=== PATIENT | female | born 1950 | race African-American/Black ===

== ENCOUNTER 2016-11-05 10:31 | Emergency (ER) | payer OTHER, MEDICAID ==
[2016-11-05 11:21] VITALS: BP 125/67; BMI 25.7
--- NOTE | 2016-11-05 11:32 | DR.GENAD ---
HPI - PCP Primary Care Physician: KISHORE - HPI Comment HPI Comment: DIALYSIS PATIENT DUE DIALYSIS IN AM. NO SOB. NO CALF PAIN. NO CHEST PAIN. - Complaint/Symptoms Chief Complaint Doctors Comments: INCREASE EDEMA LOWER EXTREMITY. MILD PAIN. Chief Complaint:: EMRE ALVARADO FROM [facility] CALLS AND STATES THAT PT. HAS PITTING EDEMA TO BILATERAL LOWER EXTREMITIES WHICH STARTED YESTERDAY. PT. C/O MINIMAL PAIN TO EXTREMITIES. DENIES SHORTNESS OF BREATH. - Nurses notes reviewed Nurses Notes Review: Yes - Source History Provided: Patient, Alf - Mode of Arrival Mode of Arrival: Stretcher - Timing Onset of Chief Complaint: 11/04/16 Came on: Suddenly - Duration Duration: Constant Duration: Days - Severity Severity: Moderate PMH - PMH Past Medical History: Yes Past Medical History: Anemia, Anxiety, Arthritis, Asthma, CVA, Depression, Dialysis, GERD, Hypertension, Renal Disease, SVT Past Surgical History: Yes Surgical History: Ortho Surgery, Other Past Surgical History Comment: DIALYSIS SHUNT TO LEFT THIGH - Family History History of Family Medical Conditions: Yes Family Medical History: Cancer, [place], Sudden Cardiac , Hypertension - Social History Does patient currently use any type of tobacco product: No Have you used tobacco products in the last 12 months: No Type of Tobacco Use: None Does any household member use tobacco: No Alcohol Use: None Do you use any recreational Drugs:: No Lives Where: [place] - infectious screening In the last 2 months have you had wt loss of >10#?: NO Have you had fever, night sweats or hemotysis?: No Have you traveled outside the country in the last 6 months?: No Isolation: Standard ROS - Review of Systems Constitutional: Weakness (CHRONIC), Fatigue (CHRONIC). negative: Chills, Fever Eyes: No Symptoms Reported. negative: Eye Pain, Discharge ENTM: negative: Ear Pain, Nose Discharge, Nose Congestion, Throat Pain Respiratoy: negative: Productive Cough, Short of Breath, Wheezing, Hemoptysis Cardiovascular: Edema. negative: Chest Pain Gastrointestinal/Abdominal: Other (USES DIAPER.). negative: Nausea, Vomiting Genitourinary: negative: Hematuria Neurological: Weakness. negative: Headache, Dizziness Musculoskeletal: Back Pain (CHRONIC) Integumentary: Other (3 PLUS EDEMA, PITTING.) Hematologic/Lymphatic: Easy Bruising Endocrine: No Symptoms Reported All Other Systems: Reviewed and Negative PE - Vital Signs Vitals: Temperature 98.3 F Pulse Rate 74 Respiratory Rate 17 Blood Pressure [Right Arm] 155/83 Blood Pressure [Left Arm] 143/74 Blood Pressure [Left Thigh] 191/91 Blood Pressure 125/67 O2 Sat by Pulse Oximetry 97 - General Limitations: No Limitations General Appearance: Alert - Head Head Exam: Normal Inspection - Eyes Eye exam: Normal Appearance - ENT ENT Exam: Normal External Ear Exam External Ear Exam: Normal External Inspection TM/Canal Exam: Bilateral Normal Nose Exam: Normal Nose Exam Mouth Exam: Normal Inspection Throat Exam: Normal Inspection - Neck Neck Exam: Trachea Midline - Chest Chest Inspection: Symmetric Chest Wall Rise - Respiratory Respiratory Exam: Normal Lung Sounds Bilat Respiratory Exam: Bilateral Rhonchi, Lower Rhonchi - Cardiovascular Cardiovascular Exam: Regular Rate, Normal Rhythm, Normal Heart Sounds - Abdominal Exam Abdominal Exam: Normal Bowel Sounds, Soft. negative: Tenderness - Extremities Extremities Exam: Edema (3 PLUS) - Back Back Exam: Paraspinal Tenderness - Neurologic Neurological Exam: Alert, Oriented X3 - Psychiatric Psychiatric Exam: Normal Affect, Normal Mood - Skin Skin Exam: Other (3 PLUS EDEMA) MDM - Differential Diagnosis Differential Diagnosis: EDEMA Course - Treatment Treatment: SEE ORDERS. - Education/Counseling Education/Counseling: Patient, Education Educated On: Treatment, Diagnosis, Needs for Follow Up ROR - Labs Reviewed Laboratory Results Reviewed?: Yes Result Diagrams: 11/05/16 11:35 11/05/16 11:35 Laboratory: WBC 8.2 X10^3/uL (3.6-10.0) 11/05/16 11:35 RBC 3.95 X10^6/uL (3.5-5.4) 11/05/16 11:35 Hgb 9.7 g/dL (12.0-16.0) L 11/05/16 11:35 Hct 29.1 % (36.0-47.0) L 11/05/16 11:35 MCV 73.8 fL (80.0-100.0) L 11/05/16 11:35 MCH 24.5 pg (27.0-34.0) L 11/05/16 11:35 MCHC 33.3 g/dL (33.0-35.0) 11/05/16 11:35 RDW 17.3 % (11.6-16.5) H 11/05/16 11:35 Plt Count 226 X10^3/uL (150.0-450.0) 11/05/16 11:35 Plt Count Comment Adequate (ADEQUATE) 11/05/16 11:35 MPV 8.0 fL (7.4-11.0) 11/05/16 11:35 Neut % 71.0 % (42.0-75.0) 11/05/16 11:35 Lymph % 17.2 % (21.0-51.0) L 11/05/16 11:35 [place] % 7.3 % (0.0-13.0) 11/05/16 11:35 Eos % 3.9 % (0.9-2.9) H 11/05/16 11:35 Baso % 0.6 % (0.2-1.0) 11/05/16 11:35 Neut # 5.9 x10^3/uL (2.2-4.8) H 11/05/16 11:35 Lymph # 1.4 X10^3/uL (1.3-2.9) 11/05/16 11:35 [place] # 0.6 x10^3/uL (0.3-0.8) 11/05/16 11:35 Eos # 0.3 x10^3/uL (0.0-0.2) H 11/05/16 11:35 Baso # 0.0 X10^3/uL (0.0-0.1) 11/05/16 11:35 Absolute Nucleated RBC 0.1 /100WBC 11/05/16 11:35 Plt Morphology Comment Normal (NORMAL) 11/05/16 11:35 RBC Morphology Abnormal (NORMAL) A 11/05/16 11:35 Hypochromasia 2+ A 11/05/16 11:35 Anisocytosis Slight A 11/05/16 11:35 Target Cells Present 11/05/16 11:35 Sodium 136 mmol/L (136-145) 11/05/16 11:35 Corrected Sodium TNP 11/05/16 11:35 Potassium 4.2 mmol/L (3.5-5.1) 11/05/16 11:35 Chloride 97 mmol/L (98-107) L 11/05/16 11:35 Carbon Dioxide 32.0 mmol/L (21-32) 11/05/16 11:35 BUN 34 mg/dL (7-18) H 11/05/16 11:35 Creatinine 4.33 mg/dL (0.55-1.02) H 11/05/16 11:35 Est GFR (MDRD) Af Amer 13 (>60) L 11/05/16 11:35 Est GFR (MDRD) Non-Af 11 (>60) L 11/05/16 11:35 Glucose 87 mg/dL (65-99) 11/05/16 11:35 Calcium 8.1 mg/dL (8.5-10.1) L 11/05/16 11:35 Corrected Calcium 9.5 mg/dL (8.5-10.1) 11/05/16 11:35 Total Bilirubin 0.70 mg/dL (0.2-1.0) 11/05/16 11:35 AST 15 Units/L (15-37) 11/05/16 11:35 ALT 8 Units/L (12-78) L 11/05/16 11:35 Alkaline Phosphatase 141 Units/L (46-116) H 11/05/16 11:35 Creatine Kinase 22 Units/L (26-192) L 11/05/16 11:35 CK-MB (CK-2) < 1.0 ng/mL (0-4.0) 11/05/16 11:35 CK/CKMB % Calc 4.6 % (<4) 11/05/16 11:35 Troponin I < 0.02 ng/mL (0-1.5) 11/05/16 11:35 Total Protein 8.0 g/dL (6.4-8.2) 11/05/16 11:35 Albumin 2.3 g/dL (3.4-5.0) L 11/05/16 11:35 Globulin 5.7 g/dL (2.5-4.5) H 11/05/16 11:35 Albumin/Globulin Ratio 0.4 Ratio (1.1-2.1) L 11/05/16 11:35 - XRAY XRAY Interpreted by: Radiologist XRAY Findings: report discuss with patient. - EKG Rhythm: NSR (EKG NOTED.) - Diagnosis Discharge Problem: Edema Qualifiers: Edema type: localized Qualified Code(s): R60.0 - Localized edema - Discharge Plan Disposition: 01 HOME, SELF-CARE Condition: Stable - Follow ups/Referrals Follow ups/Referrals: Jim Maurice [Primary Care Provider] - 11/06/16 - Instructions Instructions: Edema Additional Instructions: return to ed if worse.
[2016-11-05] MEDS ORDERED: LASIX IVP ONE ×2 (11:39→11:40)
[2016-11-05 11:45] LABS: BASOPHILS % (AUTO) 0.6 % (0.2-1.0); EOSINOPHILS # (AUTO) 0.3 x10^3/uL (0.0-0.2); EOSINOPHILS % (AUTO) 3.9 % (0.9-2.9); HEMATOCRIT 29.1 % (36.0-47.0); HEMOGLOBIN 9.7 g/dL (12.0-16.0); LYMPHOCYTES # (AUTO) 1.4 X10^3/uL (1.3-2.9); LYMPHOCYTES % (AUTO) 17.2 % (21.0-51.0); MEAN CORPUSCULAR HEMOGLOBIN 24.5 pg (27.0-34.0); MEAN CORPUSCULAR HGB CONC 33.3 g/dL (33.0-35.0); MEAN CORPUSCULAR VOLUME 73.8 fL (80.0-100.0); MONOCYTES # (AUTO) 0.6 x10^3/uL (0.3-0.8); MONOCYTES % (AUTO) 7.3 % (0.0-13.0); NEUTROPHILS # (AUTO) 5.9 x10^3/uL (2.2-4.8); PLATELET COUNT 226 X10^3/uL (150.0-450.0); RED BLOOD COUNT 3.95 X10^6/uL (3.5-5.4); RED CELL DISTRIBUTION WIDTH 17.3 % (11.6-16.5); WHITE BLOOD COUNT 8.2 X10^3/uL (3.6-10.0)
[2016-11-05 12:00] LABS: ANISOCYTOSIS SLIGHT; HYPOCHROMASIA 2+; PLATELET MORPHOLOGY COMMENT NORMAL (NORMAL); TARGET CELLS PRESENT
[2016-11-05 12:08] LABS: BLOOD UREA NITROGEN 34 mg/dL (7-18); CALCIUM 8.1 mg/dL (8.5-10.1); CHLORIDE 97 mmol/L (98-107); CREATININE 4.33 mg/dL (0.55-1.02); GLUCOSE 87 mg/dL (65-99); SODIUM 136 mmol/L (136-145); TROPONIN I < 0.02 ng/mL (0-1.5); eGFR BLACK RACES 13 (>60); eGFR NON BLACK RACES 11 (>60)
[2016-11-05 12:13] LABS: ALANINE AMINOTRANSFERASE 8 Units/L (12-78); ALBUMIN 2.3 g/dL (3.4-5.0); ALKALINE PHOSPHATASE 141 Units/L (46-116); ASPARTATE AMINO TRANSFERASE 15 Units/L (15-37); CKMB % 4.6 % (<4); COR CA(FOR HYPOALB) 9.5 mg/dL (8.5-10.1); CREATINE KINASE 22 Units/L (26-192); CREATINE KINASE MB < 1.0 ng/mL (0-4.0)
--- NOTE | 2016-11-05 12:28 | RAD ---
HISTORY: Chest pain. Swelling to both legs and feet Study: Single-view chest, done portably Comparison: May 01, 2016 Findings: Trachea is midline. There is cardiomegaly with aortic uncoiling. Lungs and pleural spaces are clear. An endovascular stent is present involving the subclavian/axillary artery region on the left. Degen erative changes are present involving both shoulders. IMPRESSION: Hypertensive configuration. No acute cardiopulmonary disease. Reported By:
== END 2016-11-05 13:16 | disposition home or self-care (01) ==
LOC: ER 10:44
DX: R60.0 Localized edema (principal)
CPT/HCPCS: 36415; 71010; 80053; 82550; 82553; 84484; 85025; 93005; 96365; 96374; 99283; A4222; J1940

== ENCOUNTER 2016-11-08 10:34 | Emergency (ER) | payer OTHER, MEDICAID ==
[2016-11-08] MEDS ORDERED: AFRIN NASAL SPRAY ONE ×2 (10:55→11:00)
[2016-11-08] MEDS ORDERED: SILVER NITRATE STICK APPL ONE ×2 (10:55→11:06)
[2016-11-08] MEDS ORDERED: SILVER NITRATE STICK APPL TOP PRN (11:05)
[2016-11-08 11:12] VITALS: BP 129/71; BMI 26.6
--- NOTE | 2016-11-08 12:15 | DR.NOSEBLE ---
HPI - Time Seen Time seen: 10:45 - Primary Care Physician Primary Care Physician: [email or web address] - Complaints Chief Complaint Doctors Comments: Patient admits to epistaxis since last night. She denies trauma. She was sent to the ED this AM for evaulation. She is scheduled for dialysis at 1245 today. Chief Complaint:: nose bleed since last pm - Source History Provided: [facility] - Mode of Arrival Mode of Arrival: Stretcher - Timing Onset of Chief Complaint: 11/07/16 PMH - PMH Past Medical History: Yes Past Medical History: Anemia, Anxiety, Arthritis, Asthma, CVA, Depression, Dialysis, GERD, Hypertension, Renal Disease, SVT Past Surgical History: Yes Surgical History: Ortho Surgery, Other - Family History History of Family Medical Conditions: Yes Family Medical History: Cancer, [place], Sudden Cardiac , Hypertension - Social History Does any household member use tobacco: No Alcohol Use: None Do you use any recreational Drugs:: No Lives With: Other Lives Where: [facility] - infectious screening In the last 2 months have you had wt loss of >10#?: NO Have you had fever, night sweats or hemotysis?: No Have you traveled outside the country in the last 6 months?: No Isolation: Standard ROS - Review of Systems ENTM: No Symptoms Reported Respiratoy: No Symptoms Reported Cardiovascular: No Symptoms Reported Gastrointestinal/Abdominal: No Symptoms Reported Genitourinary: No Symptoms Reported Neurological: No Symptoms Reported Musculoskeletal: No Symptoms Reported Integumentary: No Symptoms Reported Hematologic/Lymphatic: No Symptoms Reported Endocrine: No Symptoms Reported Psychiatric: No Symptoms Reported All Other Systems: Reviewed and Negative PE - Vital Signs Vitals: Temperature 98.5 F Pulse Rate 96 Respiratory Rate 18 Blood Pressure [Right Arm] 155/83 Blood Pressure [Left Arm] 143/74 Blood Pressure [Left Thigh] 191/91 Blood Pressure 129/71 O2 Sat by Pulse Oximetry 96 - General Limitations: No Limitations General Appearance: Alert - Head Head Exam: Normal Inspection, Atraumatic - Eyes Eye exam: Normal Appearance, PERRL, EOMI Eyelids: Normal Inspection: Bilateral Pupils: Regular, Round: Bilateral Sclera/Conjunctival: Normal Inspection: Bilateral Anterior chamber: Cell/flare: Bilateral - ENT ENT Exam: Normal Exam, Normal Oropharynx External Ear Exam: Normal External Inspection Nose Exam: Other (nasal mucosa is erythematous w/o trauma, no active bleeding noted anterior chamber.) Nasal Speculum Exam: Right Epistaxis Mouth Exam: Normal Inspection. negative: Drooling, Trismus Throat Exam: Normal Inspection - Neck Neck Exam: Normal Inspection, Full ROM - Chest Chest Inspection: Normal Inspection - Respiratory Respiratory Exam: Normal Lung Sounds Bilat Respiratory Exam: Bilateral Clear to Auscultation - Cardiovascular Cardiovascular Exam: Regular Rate - Abdominal Exam Abdominal Exam: Normal Inspection Abdominal Tenderness: negative: RUQ, RLQ, LUQ, LLQ, Epigastrium, Suprapubic, Diffuse, Mild, Moderate, Severe, Other - Extremities Extremities Exam: Edema - Back Back Exam: Normal Inspection, Full ROM - Neurologic Neurological Exam: Alert, Oriented X3, CN II-XII Intact - Psychiatric Psychiatric Exam: Normal Affect, Normal Mood - Skin Skin Exam: Warm, Dry, Intact Course - Treatment Treatment: Silver nitrate, surgicele, afrin spray, [place] - Reevaluation 1st: Improved - Diagnosis Discharge Problem: Posterior epistaxis - Discharge Plan Condition: Stable - Follow ups/Referrals Follow ups/Referrals: Jim Maurice [Primary Care Provider] - 3 days - Instructions
== END 2016-11-08 13:06 | disposition home or self-care (01) ==
LOC: ER 10:39
PROC: 2Y41X5Z Packing of Nasal Region using Packing Material (ICD-10-PCS; principal; 2016-11-08)
DX: R04.0 Epistaxis (principal)
CPT/HCPCS: 30901; 36415; 80053; 85025; 99283

== ENCOUNTER 2016-12-20 11:00 | Emergency (ER) | payer OTHER, MEDICAID ==
--- NOTE | 2016-12-20 13:08 | DR.GENAD ---
HPI - HPI Comment HPI Comment: AV SHUNT LATERAL UPPER THIGH BLEEDING PROFUSELY. STARTED FEW MINUTES AGO. DENIES DIZZINESS OR NEAR SYNCOPAL FEEELING. - Complaint/Symptoms Chief Complaint Doctors Comments: AV SHUNT FOR DIALYSIS BLEEDING WHILE BATHING PATIENT FEW MINUTES BEFORE COMING. - Nurses notes reviewed Nurses Notes Review: Yes - Source History Provided: Patient, Mcc - Mode of Arrival Mode of Arrival: Stretcher - Timing Came on: Suddenly - Duration Duration: Constant Duration: Minutes - Severity Severity: Severe PMH - PMH Past Medical History: Anemia, Anxiety, Arthritis, Asthma, CVA, Depression, Dialysis, GERD, Hypertension, Renal Disease, SVT Past Surgical History: Yes Surgical History: Ortho Surgery, Other - Family History Family Medical History: Cancer, [place], Sudden Cardiac , Hypertension - Social History Do you use any recreational Drugs:: No ROS - Review of Systems Constitutional: Weakness, Fatigue Eyes: No Symptoms Reported ENTM: No Symptoms Reported Respiratoy: Short of Breath (ON EXERSION) Cardiovascular: No Symptoms Reported Gastrointestinal/Abdominal: No Symptoms Reported Genitourinary: No Symptoms Reported Neurological: Weakness Musculoskeletal: Joint Swelling, Muscle Pain Integumentary: Change in Color Hematologic/Lymphatic: Easy Bleeding, Easy Bruising Endocrine: No Symptoms Reported All Other Systems: Reviewed and Negative PE - Vital Signs Vitals: Temperature 97.6 F Pulse Rate [Left] 67 Pulse Rate 64 Respiratory Rate 20 Blood Pressure [Right Arm] 130/67 Blood Pressure [Left Arm] 143/74 Blood Pressure [Left Thigh] 191/91 Blood Pressure 154/84 O2 Sat by Pulse Oximetry 100 - General Limitations: No Limitations General Appearance: Alert - Head Head Exam: Normal Inspection - Eyes Eye exam: Normal Appearance - ENT ENT Exam: Normal External Ear Exam External Ear Exam: Normal External Inspection TM/Canal Exam: Bilateral Normal Nose Exam: Normal Nose Exam Mouth Exam: Normal Inspection Throat Exam: Normal Inspection - Neck Neck Exam: Trachea Midline - Chest Chest Inspection: Symmetric Chest Wall Rise - Respiratory Respiratory Exam: Normal Lung Sounds Bilat Respiratory Exam: Bilateral Rhonchi, Lower Rhonchi - Cardiovascular Cardiovascular Exam: Regular Rate, Normal Rhythm, Normal Heart Sounds - Abdominal Exam Abdominal Exam: Normal Bowel Sounds, Soft. negative: Tenderness - Extremities Extremities Exam: Tenderness (BOTH EXXTREMITIES.), Edema - Back Back Exam: Paraspinal Tenderness - Neurologic Neurological Exam: Alert, Oriented X3, Other (PATIENTT IS BED BOUND. PREVIOUS CVA.) - Psychiatric Psychiatric Exam: Anxious - Skin Skin Exam: Other (HEMORRHAGE AV SHUNT LATERAL LT THIGH.) MDM - Differential Diagnosis Differential Diagnosis: HEMORRHAGE FROM AV SHUNT. Course - Treatment Treatment: SEE ORDERS. - Consultation Consultation Comments: DR HIRSCH, SURGEON CONSULTED. CAME TO ED AND APLLIED SUTURES TO THE BLEEDING SITE WITH 4-0 PROLYN. PATIENT ACCEPTED FOR TRANSFER BY DR. LAMAR, [facility] IN [place], [place]. 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 - Education/Counseling Education/Counseling: Patient Educated On: Treatment, Diagnosis ROR - Labs Reviewed Laboratory Results Reviewed?: Yes Result Diagrams: 12/20/16 11:30 12/20/16 11:30 Laboratory: WBC 5.5 X10^3/uL (3.6-10.0) 12/20/16 11:30 RBC 3.92 X10^6/uL (3.5-5.4) 12/20/16 11:30 Hgb 9.3 g/dL (12.0-16.0) L 12/20/16 11:30 Hct 29.4 % (36.0-47.0) L 12/20/16 11:30 MCV 75.1 fL (80.0-100.0) L 12/20/16 11:30 MCH 23.7 pg (27.0-34.0) L 12/20/16 11:30 MCHC 31.5 g/dL (33.0-35.0) L 12/20/16 11:30 RDW 18.6 % (11.6-16.5) H 12/20/16 11:30 Plt Count 227 X10^3/uL (150.0-450.0) 12/20/16 11:30 Plt Count Comment Adequate (ADEQUATE) 12/20/16 11:30 MPV 8.9 fL (7.4-11.0) 12/20/16 11:30 Neut % 36.9 % (42.0-75.0) L 12/20/16 11:30 Lymph % 49.5 % (21.0-51.0) 12/20/16 11:30 [place] % 5.9 % (0.0-13.0) 12/20/16 11:30 Eos % 6.1 % (0.9-2.9) H 12/20/16 11:30 Baso % 1.6 % (0.2-1.0) H 12/20/16 11:30 Neut # 2.0 x10^3/uL (2.2-4.8) L 12/20/16 11:30 Lymph # 2.7 X10^3/uL (1.3-2.9) 12/20/16 11:30 [place] # 0.3 x10^3/uL (0.3-0.8) 12/20/16 11:30 Eos # 0.3 x10^3/uL (0.0-0.2) H 12/20/16 11:30 Baso # 0.1 X10^3/uL (0.0-0.1) 12/20/16 11:30 Absolute Nucleated RBC 0.2 /100WBC 12/20/16 11:30 Total Counted 100 12/20/16 11:30 Neutrophils % (Manual) 50 % (39-76) 12/20/16 11:30 Lymphocytes % (Manual) 38 % (13-43) 12/20/16 11:30 Monocytes % (Manual) 3 % (4-9) L 12/20/16 11:30 Eosinophils % (Manual) 9 % (0-6) H 12/20/16 11:30 Plt Morphology Comment Normal (NORMAL) 12/20/16 11:30 RBC Morphology Abnormal (NORMAL) A 12/20/16 11:30 Hypochromasia 1+ A 12/20/16 11:30 Macrocytosis 1+ A 12/20/16 11:30 Sodium 133 mmol/L (136-145) L 12/20/16 11:30 Corrected Sodium TNP 12/20/16 11:30 Potassium 5.0 mmol/L (3.5-5.1) 12/20/16 11:30 Chloride 96 mmol/L (98-107) L 12/20/16 11:30 Carbon Dioxide 31.1 mmol/L (21-32) 12/20/16 11:30 BUN 28 mg/dL (7-18) H 12/20/16 11:30 Creatinine 4.57 mg/dL (0.55-1.02) H 12/20/16 11:30 Est GFR (MDRD) Af Amer 12 (>60) L 12/20/16 11:30 Est GFR (MDRD) Non-Af 10 (>60) L 12/20/16 11:30 Glucose 86 mg/dL (65-99) 12/20/16 11:30 Calcium 8.1 mg/dL (8.5-10.1) L 12/20/16 11:30 Corrected Calcium 9.5 mg/dL (8.5-10.1) 12/20/16 11:30 Total Bilirubin 0.40 mg/dL (0.2-1.0) 12/20/16 11:30 AST 37 Units/L (15-37) 12/20/16 11:30 ALT 10 Units/L (12-78) L 12/20/16 11:30 Alkaline Phosphatase 219 Units/L (46-116) H 12/20/16 11:30 Total Protein 8.4 g/dL (6.4-8.2) H 12/20/16 11:30 Albumin 2.3 g/dL (3.4-5.0) L 12/20/16 11:30 Globulin 6.1 g/dL (2.5-4.5) H 12/20/16 11:30 Albumin/Globulin Ratio 0.4 Ratio (1.1-2.1) L 12/20/16 11:30 Blood Type B POSITIVE 12/20/16 11:50 Antibody Screen Negative 12/20/16 11:50 - Diagnosis Discharge Problem: Hemorrhage from arteriovenous dialysis graft Hemorrhage from dialysis shunt Qualifiers: Encounter type: initial encounter Qualified Code(s): T82.838A - Hemorrhage due to vascular prosthetic devices, implants and grafts, initial encounter - Discharge Plan Disposition: 02 XFER [facility]M HOSP Condition: Stable - Follow ups/Referrals Follow ups/Referrals: Jim Maurice [Primary Care Provider] - 3 days - Instructions
[2016-12-20 13:26] VITALS: BMI 25.7
[2016-12-20 13:45] LABS: BASOPHILS # (AUTO) 0.1 X10^3/uL (0.0-0.1); BASOPHILS % (AUTO) 1.6 % (0.2-1.0); EOSINOPHILS # (AUTO) 0.3 x10^3/uL (0.0-0.2); EOSINOPHILS % (AUTO) 6.1 % (0.9-2.9); HEMATOCRIT 29.4 % (36.0-47.0); HEMOGLOBIN 9.3 g/dL (12.0-16.0); LYMPHOCYTES # (AUTO) 2.7 X10^3/uL (1.3-2.9); LYMPHOCYTES % (AUTO) 49.5 % (21.0-51.0); MEAN CORPUSCULAR HEMOGLOBIN 23.7 pg (27.0-34.0); MEAN CORPUSCULAR HGB CONC 31.5 g/dL (33.0-35.0); MEAN CORPUSCULAR VOLUME 75.1 fL (80.0-100.0); MEAN PLATELET VOLUME 8.9 fL (7.4-11.0); MONOCYTES # (AUTO) 0.3 x10^3/uL (0.3-0.8); MONOCYTES % (AUTO) 5.9 % (0.0-13.0); NEUTROPHILS % (AUTO) 36.9 % (42.0-75.0); PLATELET COUNT 227 X10^3/uL (150.0-450.0); RED BLOOD COUNT 3.92 X10^6/uL (3.5-5.4); RED CELL DISTRIBUTION WIDTH 18.6 % (11.6-16.5); WHITE BLOOD COUNT 5.5 X10^3/uL (3.6-10.0)
[2016-12-20 13:48] LABS: HYPOCHROMASIA 1+; PLATELET MORPHOLOGY COMMENT NORMAL (NORMAL)
[2016-12-20 13:49] LABS: ALANINE AMINOTRANSFERASE 10 Units/L (12-78); ALBUMIN 2.3 g/dL (3.4-5.0); ALKALINE PHOSPHATASE 219 Units/L (46-116); ASPARTATE AMINO TRANSFERASE 37 Units/L (15-37); BLOOD UREA NITROGEN 28 mg/dL (7-18); CALCIUM 8.1 mg/dL (8.5-10.1); CARBON DIOXIDE 31.1 mmol/L (21-32); CHLORIDE 96 mmol/L (98-107); COR CA(FOR HYPOALB) 9.5 mg/dL (8.5-10.1); CREATININE 4.57 mg/dL (0.55-1.02); GLUCOSE 86 mg/dL (65-99); SODIUM 133 mmol/L (136-145); TOTAL PROTEIN 8.4 g/dL (6.4-8.2); eGFR BLACK RACES 12 (>60); eGFR NON BLACK RACES 10 (>60)
[2016-12-20] MEDS ORDERED: NORCO 10/325 TAB PO ONE (14:14)
[2016-12-20] MEDS ORDERED: NORCO 10/325 TAB ONE (14:30)
[2016-12-20 15:17] VITALS: BP 130/67
== END 2016-12-20 15:39 | disposition short-term general hospital (02) ==
LOC: ER 11:00
PROC: 0YQD0ZZ Repair Left Upper Leg, Open Approach (ICD-10-PCS; principal; 2016-12-20)
DX: T82.838A Hemorrhage due to vascular prosthetic devices, implants and grafts, initial encounter (principal)
CPT/HCPCS: 12001; 36415; 80053; 85025; 86850; 86900; 86901; 96365; 99284; A4222

== ENCOUNTER 2017-02-14 10:10 | Emergency (ER) | payer OTHER, MEDICAID ==
[2017-02-14] MEDS ORDERED: MORPHINE SULFATE INJ 4 MG IVP ONE ×2 (10:29→12:48)
[2017-02-14] MEDS ORDERED: MORPHINE SULFATE INJ 4 MG ONE ×2 (10:30→12:48)
[2017-02-14] MEDS ORDERED: NS 1000 ML 1,000 ML ONE (10:33)
[2017-02-14 10:34] VITALS: BMI 26.6
[2017-02-14] MEDS ORDERED: ADENOCARD INJ 6 MG IVP ONE (10:45)
[2017-02-14] MEDS ORDERED: NS 1000 ML 1,000 ML IV ONE (10:46)
[2017-02-14] MEDS ORDERED: ADENOCARD INJ 6 MG ONE (10:48)
--- NOTE | 2017-02-14 10:55 | DR.GENAD ---
HPI - PCP Primary Care Physician: KISHORE - Complaint/Symptoms Chief Complaint:: RETIREMENT STAFF REPORTS PTS HEART RATE IS 152, PT IS CONFUSED AND YELLING OUT THIS AM. ORDERS PER DR. NOVAK TO SEND TO ER FOR EVAL. - Source History Provided: Patient - Mode of Arrival Mode of Arrival: Stretcher - Timing Onset of Chief Complaint: 02/14/17 PMH - PMH Past Medical History: Yes Past Medical History: Anemia, Anxiety, Arthritis, Asthma, CVA, Depression, Dialysis, GERD, Hypertension, Renal Disease, SVT Past Surgical History: Yes Surgical History: Ortho Surgery, Other - Family History History of Family Medical Conditions: Yes Family Medical History: Cancer, [place], Sudden Cardiac , Hypertension - Social History Does patient currently use any type of tobacco product: No Have you used tobacco products in the last 12 months: No Type of Tobacco Use: None Alcohol Use: None Do you use any recreational Drugs:: No Lives With: Other Lives Where: [facility] - infectious screening In the last 2 months have you had wt loss of >10#?: NO Have you had fever, night sweats or hemotysis?: No Have you traveled outside the country in the last 6 months?: No Isolation: Standard PE - Vital Signs Vitals: Pulse Rate [Right Brachial] 103 Pulse Rate 153 Respiratory Rate 22 Blood Pressure [Right Arm] 127/81 Blood Pressure [Left Arm] 143/74 Blood Pressure [Left Thigh] 191/91 Blood Pressure 118/90 O2 Sat by Pulse Oximetry 98 ROR - Labs Reviewed Result Diagrams: 02/14/17 10:30 02/14/17 10:30 Laboratory: WBC 11.5 X10^3/uL (3.6-10.0) H 02/14/17 10:30 RBC 2.60 X10^6/uL (3.5-5.4) L 02/14/17 10:30 Hgb 7.0 g/dL (12.0-16.0) L 02/14/17 10:30 Hct 21.3 % (36.0-47.0) L 02/14/17 10:30 MCV 82.1 fL (80.0-100.0) 02/14/17 10:30 MCH 26.8 pg (27.0-34.0) L 02/14/17 10:30 MCHC 32.7 g/dL (33.0-35.0) L 02/14/17 10:30 RDW 20.2 % (11.6-16.5) H 02/14/17 10:30 Plt Count 337 X10^3/uL (150.0-450.0) 02/14/17 10:30 Plt Count Comment Adequate (ADEQUATE) 02/14/17 10:30 MPV 8.9 fL (7.4-11.0) 02/14/17 10:30 Neut % 84.9 % (42.0-75.0) H 02/14/17 10:30 Lymph % 8.8 % (21.0-51.0) L 02/14/17 10:30 M[place]ulloch % 5.3 % (0.0-13.0) 02/14/17 10:30 Eos % 0.2 % (0.9-2.9) L 02/14/17 10:30 Baso % 0.8 % (0.2-1.0) 02/14/17 10:30 Neut # 9.7 x10^3/uL (2.2-4.8) H 02/14/17 10:30 Lymph # 1.0 X10^3/uL (1.3-2.9) L 02/14/17 10:30 [place] # 0.6 x10^3/uL (0.3-0.8) 02/14/17 10:30 Eos # 0.0 x10^3/uL (0.0-0.2) 02/14/17 10:30 Baso # 0.1 X10^3/uL (0.0-0.1) 02/14/17 10:30 Absolute Nucleated RBC 0.1 /100WBC 02/14/17 10:30 Plt Morphology Comment Normal (NORMAL) 02/14/17 10:30 RBC Morphology Abnormal (NORMAL) A 02/14/17 10:30 Hypochromasia Slight A 02/14/17 10:30 Anisocytosis 1+ A 02/14/17 10:30 Sodium 138 mmol/L (136-145) 02/14/17 10:30 Corrected Sodium TNP 02/14/17 10:30 Potassium 5.0 mmol/L (3.5-5.1) 02/14/17 10:30 Chloride 101 mmol/L (98-107) 02/14/17 10:30 Carbon Dioxide 19.3 mmol/L (21-32) L 02/14/17 10:30 BUN 24 mg/dL (7-18) H 02/14/17 10:30 Creatinine 4.72 mg/dL (0.55-1.02) H 02/14/17 10:30 Est GFR (MDRD) Af Amer 12 (>60) L 02/14/17 10:30 Est GFR (MDRD) Non-Af 10 (>60) L 02/14/17 10:30 Glucose 53 mg/dL (65-99) L 02/14/17 10:30 Calcium 7.3 mg/dL (8.5-10.1) L 02/14/17 10:30 Corrected Calcium 9.4 mg/dL (8.5-10.1) 02/14/17 10:30 Total Bilirubin 0.60 mg/dL (0.2-1.0) 02/14/17 10:30 AST 23 Units/L (15-37) 02/14/17 10:30 ALT < 6 Units/L (12-78) L 02/14/17 10:30 Alkaline Phosphatase 140 Units/L (46-116) H 02/14/17 10:30 Creatine Kinase 59 Units/L (26-192) 02/14/17 10:30 CK-MB (CK-2) 1.1 ng/mL (0-4.0) 02/14/17 10:30 CK/CKMB % Calc 1.9 % (<4) 02/14/17 10:30 Troponin I 0.14 ng/mL (0-1.5) 02/14/17 10:30 C-Reactive Protein 105.00 mg/L (0-3.0) H 02/14/17 10:30 Total Protein 6.7 g/dL (6.4-8.2) 02/14/17 10:30 Albumin 1.4 g/dL (3.4-5.0) L 02/14/17 10:30 Globulin 5.3 g/dL (2.5-4.5) H 02/14/17 10:30 Albumin/Globulin Ratio 0.3 Ratio (1.1-2.1) L 02/14/17 10:30 - XRAY XRAY Interpreted by: Radiologist (Chest: cardiomegaly without CHF, lungs clear) - Diagnosis Discharge Problem: SVT (supraventricular tachycardia) Renal failure Qualifiers: Renal failure chronicity: chronic Chronic kidney disease stage: on chronic dialysis Qualified Code(s): N18.6 - End stage renal disease; Z99.2 - Dependence on renal dialysis; Z99.2 - Dependence on renal dialysis; Z99.2 - Dependence on renal dialysis; Z99.2 - Dependence on renal dialysis - Discharge Plan Condition: Stable - Follow ups/Referrals Follow ups/Referrals: Jim Novak [Primary Care Provider] - 3 days - Instructions
[2017-02-14 11:07] LABS: BASOPHILS # (AUTO) 0.1 X10^3/uL (0.0-0.1); BASOPHILS % (AUTO) 0.8 % (0.2-1.0); EOSINOPHILS % (AUTO) 0.2 % (0.9-2.9); HEMATOCRIT 21.3 % (36.0-47.0); LYMPHOCYTES % (AUTO) 8.8 % (21.0-51.0); MEAN CORPUSCULAR HEMOGLOBIN 26.8 pg (27.0-34.0); MEAN CORPUSCULAR HGB CONC 32.7 g/dL (33.0-35.0); MEAN CORPUSCULAR VOLUME 82.1 fL (80.0-100.0); MEAN PLATELET VOLUME 8.9 fL (7.4-11.0); MONOCYTES # (AUTO) 0.6 x10^3/uL (0.3-0.8); MONOCYTES % (AUTO) 5.3 % (0.0-13.0); NEUTROPHILS # (AUTO) 9.7 x10^3/uL (2.2-4.8); NEUTROPHILS % (AUTO) 84.9 % (42.0-75.0); PLATELET COUNT 337 X10^3/uL (150.0-450.0); RED CELL DISTRIBUTION WIDTH 20.2 % (11.6-16.5); WHITE BLOOD COUNT 11.5 X10^3/uL (3.6-10.0)
[2017-02-14 11:09] LABS: PLATELET MORPHOLOGY COMMENT NORMAL (NORMAL)
[2017-02-14 11:10] LABS: ANISOCYTOSIS 1+; HYPOCHROMASIA SLIGHT
[2017-02-14 11:22] LABS: BLOOD UREA NITROGEN 24 mg/dL (7-18); CALCIUM 7.3 mg/dL (8.5-10.1); CARBON DIOXIDE 19.3 mmol/L (21-32); CHLORIDE 101 mmol/L (98-107); CREATININE 4.72 mg/dL (0.55-1.02); SODIUM 138 mmol/L (136-145); TROPONIN I 0.14 ng/mL (0-1.5); eGFR BLACK RACES 12 (>60); eGFR NON BLACK RACES 10 (>60)
[2017-02-14 11:27] LABS: ALANINE AMINOTRANSFERASE < 6 Units/L (12-78); ALBUMIN 1.4 g/dL (3.4-5.0); ALKALINE PHOSPHATASE 140 Units/L (46-116); ASPARTATE AMINO TRANSFERASE 23 Units/L (15-37); CKMB % 1.9 % (<4); COR CA(FOR HYPOALB) 9.4 mg/dL (8.5-10.1); CREATINE KINASE 59 Units/L (26-192); CREATINE KINASE MB 1.1 ng/mL (0-4.0); TOTAL PROTEIN 6.7 g/dL (6.4-8.2)
[2017-02-14 11:41] VITALS: BP 127/81
--- NOTE | 2017-02-14 11:45 | RAD ---
HISTORY: Tachycardia Study: Chest AP portable Comparison: 11/05/2016 Findings: The patient is rotated to the right. There is a large bore catheter with its tip in the expected posi tion of the superior vena cava. There is a vascular stent in the left axilla. The heart is enlarged. No congestive heart failure is noted. No infiltrates are identified. No pleural effusions are identif ied. The bony thorax is unremarkable with the exception of bilateral glenohumeral degenerative joint disease. IMPRESSION: Cardiomegaly without congestive heart failure Lungs clear Reported By:
[2017-02-14] MEDS ORDERED: COREG TAB 3.125 MG ONE (12:32)
[2017-02-14] MEDS ORDERED: COREG TAB 3.125 MG PO SCH (13:00)
== END 2017-02-14 12:56 ==
LOC: ER 10:25
DX: I47.1 Supraventricular tachycardia (principal); N18.2 Chronic kidney disease, stage 2 (mild); Z99.2 Dependence on renal dialysis; I51.7 Cardiomegaly
CPT/HCPCS: 36415; 71010; 80053; 82550; 82553; 84484; 85025; 86140; 93005; 93010; 96365; 96374; 96375; 99283; J0150; J2270

== ENCOUNTER 2017-02-23 17:53 | Emergency (ER) | payer OTHER, MEDICAID ==
[2017-02-23] MEDS ORDERED: XYLOCAINE 1 % (PLAIN) ONE (18:06)
[2017-02-23 18:22] VITALS: BP 77/55; BMI 26.6
--- NOTE | 2017-02-23 19:01 | DR.LACERAT ---
HPI - Time Seen Time seen: 19:45 - Primary Care Physician Primary Care Physician: KISHORE AGUAYO - HPI Comment HPI Comment: skin tear - Complaints Chief Complaint Doctors Comments: NH resident sustained skin tear/laceration today. Chief Complaint:: [facility] STAFF CALLED AND STATE THAT PT OBTAINED A SKIN TEAR TO RIGHT LOWER EXT...... DRESSING APPLIED AND THAT THEY ARE NOT ABLE TO OBTAIN A BP AND THAT KISHORE AGUAYO WAS CALLED AND PT IS TO BE SEEN IN THE ER.. Self Treatment fo Chief Complaint: KERLEX DRESSING,, - Reviewed Nurses Notes Reviewed: Yes - Source History Provided: Patient - Mode of Arrival Mode of Arrival: Stretcher - Location Right Lower Medial Leg Laceration Measurement: about 6 cm Wound's Depth, Shape: Superficial Laceration Explored: Clean, No Foreign Body Removed - Timing Onset of Chief Complaint: 02/23/17 - Context Mechanism: Unknown Circumstance: Unknown Tetanus Vaccination: Unknown - Severity Bleeding:: Controlled - Associated Signs and Symptoms Associated Signs and Symptoms: None PMH - PMH Past Medical History: Yes Past Medical History: Anemia, Anxiety, Arthritis, Asthma, CVA, Depression, Dialysis, GERD, Hypertension, Renal Disease, SVT Past Surgical History: Yes Surgical History: Ortho Surgery, Other - Family History History of Family Medical Conditions: Yes Family Medical History: Cancer, [place], Sudden Cardiac , Hypertension - Social History Does patient currently use any type of tobacco product: No Have you used tobacco products in the last 12 months: No Type of Tobacco Use: None Does any household member use tobacco: No Alcohol Use: None Do you use any recreational Drugs:: No Lives With: Family Lives Where: Long Term - infectious screening In the last 2 months have you had wt loss of >10#?: NO Have you had fever, night sweats or hemotysis?: No Have you traveled outside the country in the last 6 months?: No Isolation: Standard ROS - Review of Systems Integumentary: Other (Laceration to medical right leg) PE - Vital Signs Vitals: Temperature 97.2 F Respiratory Rate 20 Blood Pressure [Right Arm] 127/81 Blood Pressure [Left Arm] 143/74 Blood Pressure [Left Thigh] 191/91 Blood Pressure 77/55 - General Limitations: Altered Mental Status (this is chronic due hx. of dementia.) General Appearance: Alert, In No Apparent Distress - Head Head Exam: Normal Inspection - Eyes Eye exam: Normal Appearance - Neck Neck Exam: Normal Inspection - Chest Chest Inspection: Normal Inspection - Respiratory Respiratory Exam: Normal Lung Sounds Bilat Respiratory Exam: Bilateral Clear to Auscultation - Cardiovascular Cardiovascular Exam: Regular Rate, Normal Rhythm - Abdominal Exam Abdominal Exam: Normal Inspection, Normal Bowel Sounds, Soft - Back Back Exam: Normal Inspection - Neurologic Neurological Exam: Alert - Psychiatric Psychiatric Exam: Normal Affect - Skin Skin Exam: Warm, Other (A curved J shaved laceration to the right leg, medially about in 6 cm length. The wound is seeping serosanguinous fluid. The skin texture is quite brittle due to stretching from her chronic pedal edema.) MDM - Differential Diagnosis Differential Diagnosis: Laceration Procedures - Laceration/Wound Repair Right Lower Medial Leg Wound Length (cm): 6 Wound's Depth, Shape: Superficial Wound Explored: no foreign body removed Irrigated w/ Saline (ccs): 5 Betadine Prep?: No (allergy) Anesthesia: 1% Lidocaine Volume Anesthetic (ccs): 5 Wound Repaired With: sutures Suture Size/Type: 3:0, Ethilion Number of Sutures: 4 (The shorter arm of the J shape was repairable with sutures which held well. After the curvature and into the long segment, this skin counld not hold the sutures and was tearing. Thus, this portion of the wound had to be left open/unapproximated. ) Layer Closure?: No Sterile Dressing Applied?: Yes (Kerlix atop gauze ) Splint Applied?: No - Diagnosis Discharge Problem: Laceration - Discharge Plan Disposition: 03 XFER SNF Condition: Stable - Follow ups/Referrals Follow ups/Referrals: NFD,None [Primary Care Provider] - 3 days - Instructions
== END 2017-02-23 20:04 | disposition home or self-care (01) ==
LOC: ER 17:53
PROC: 0YQH0ZZ Repair Right Lower Leg, Open Approach (ICD-10-PCS; principal; 2017-02-23)
DX: S81.811A Laceration without foreign body, right lower leg, initial encounter (principal); W45.8XXA Other foreign body or object entering through skin, initial encounter; Y92.129 Unspecified place in nursing home as the place of occurrence of the external cause
CPT/HCPCS: 12001; 99282; J2001

== ENCOUNTER 2017-02-24 13:17 | Emergency (ER) | payer OTHER, MEDICAID ==
[2017-02-24] MEDS ORDERED: ADRENALINE CHL INJ (ABBOJECT) IVP ONE ×3 (13:24→13:30)
[2017-02-24] MEDS: LEVOPHED INJ 8 MG in D5W 250 ML IV 242 ML IV PRN ×2 (14:03→14:12)
--- NOTE | 2017-02-24 14:11 | DR.AMS ---
HPI - Time Seen Time seen: 13:17 - HPI Comment HPI Comment: HERE FROM CT WHERE PATIENT WAS FOUND UNRESPONSIVE. PATIENT IS DIALYSIS PATIENT. HAD LAC ON HER LEG TREATED IN ED YESTERDAY WITH SOME BLOOD LOSS REPORTED. - Complaint Cheif Complaint Doctors Comments: CARDIOPULMONARY ARREST. - Reviewed Nurses Notes Reviewed: Yes - Source History Provided: Family Member, [facility] - Mode of Arrival Mode of Arrival: Stretcher - Timing Came On: Suddenly Symptoms: Unchanged - Duration Duration: Constant Duration: Minutes - Quality Quality: Decreased Alertness (UNRESPONSIVE) - Severity Severity: Unresponsive - Context Recent: Trauma History Of: CVA - Associated Signs and Symptoms Associated Signs and Symptoms: Other (UNRESPONSIVE) PMH - PMH Past Medical History: Anemia, Anxiety, Arthritis, Asthma, CVA, Depression, Dialysis, GERD, Hypertension, Renal Disease, SVT Past Surgical History: Yes Surgical History: Ortho Surgery, Other - Family History Family Medical History: Cancer, [place], Sudden Cardiac , Hypertension - Social History Do you use any recreational Drugs:: No ROS - Review of Systems Constitutional: Other (UNRESPONSIVE, CARDIAC ARREST) Eyes: Other (UNRESPONSIVE) ENTM: No Symptoms Reported Respiratoy: Other (PULMONARY ARREST) Cardiovascular: Other (CARDIAC ARREST) Gastrointestinal/Abdominal: Other (UNRESPONSIVEE) Genitourinary: Other (UNRESPONSIVE) Neurological: Other (UNRESPONSIVE) Musculoskeletal: Other (UNRESPONSIVE) Integumentary: Other (LAC, BANDAGE LEG.) Hematologic/Lymphatic: Other (UNRESPONSIVE) Endocrine: Other (UNRESPONSIVE) PE - Vitals Vital Signs: Pulse Resp BP BP BP BP 02/24/17 18:30 118 H 16 88/53 02/24/17 18:12 117 H 102/68 02/24/17 18:00 129 H 105/73 02/24/17 17:50 130 H 99/67 02/24/17 17:30 114 H 85/52 02/24/17 17:20 115 H 100/55 02/24/17 17:10 133 H 116/51 02/24/17 16:50 117 H 92/50 02/24/17 16:40 115 H 110/55 02/24/17 16:30 111 H 116/74 02/24/17 16:20 106 H 105/59 02/24/17 16:10 105 H 115/72 02/24/17 16:00 93 H 136/79 02/24/17 15:50 93 H 136/79 02/24/17 15:40 91 H 125/73 02/24/17 15:31 86 128/63 02/24/17 15:21 85 113/78 02/24/17 15:01 88 93/73 02/24/17 14:51 92 H 65/41 02/24/17 14:41 104 H 86/52 02/24/17 14:31 94 H 69/50 02/24/17 14:29 94 H 69/49 02/24/17 14:13 97 H 86/53 02/24/17 14:03 120 H 67/47 02/24/17 13:43 124 H 119/73 02/23/17 18:16 77/55 02/14/17 11:30 127/81 03/26/14 20:00 143/74 09/16/12 07:13 191/91 - General Limitations: Other (UNRESPONSIVE) General Appearance: Other (INTUBATED ON RESPIRATOR) - Head Head Exam: Atraumatic Head Exam Physical: Laceration (LEG LAC SUSTAIN YESTERDAY AND SUTURE IN ED.) - Eyes Eye exam: Other (PUPILS DILATED , SLUGGIST REACTION TO LIGHT.) Pupils: Regular, Round: Bilateral - ENT ENT Exam: Normal Exam External Ear Exam: Normal External Inspection TM/Canal Exam: Bilateral Normal Nose Exam: Normal Nose Exam Mouth Exam: Normal Inspection Throat Exam: Normal Inspection - Neck Neck Exam: Trachea Midline - Chest Chest Inspection: Symmetric Chest Wall Rise - Respiratory Respiratory Exam: Other (INTUBATED) - Cardiovascular Cardiovascular Exam: Tachycardia - Abdominal Exam Abdominal Exam: Normal Bowel Sounds, Soft - Extremities Extremities Exam: Other (LAC, BANDAGE, NOT INSPECTED ON LEG) - Back Back Exam: Other (UNRESPONSIVE) - Neurological Neurological Exam: Other (UNRESPONSIVE) Speech: Other (UNRESPONSIVE) - Skin Skin Exam: Erythema (LAC) MDM - Differential Diagnosis Metabolic: Hypoglycemia (CARDIOPULMONARY ARREST, HYPOTENSION, ANEMIA) Infectious: Sepsis Course - Treatment Treatment: SEE ORDERS. PATIENT ENTUBATED IN ED USING SIZE 7 ET TUBE. LEVOPHED STARTED IN ED. D50 TIME 4 IN ED AND BLOOD TRANSFUSION ALSO STARTED IN ED. VANCOMYCIN 1GM IVPB IN ED. PATIENT ON RESPIRATORSETTING 100% O2, PEEP 5, RATE 12 AND TV 500. - Consultation Consultation Comments: DISCUSS PATIENT WITH HOSPITALIST ENMA LAUGHLIN. SHE ACCEPTED PATIENT FOR TRANSFER. - Education/Counseling Education/Counseling: Family Educated On: Treatment, Diagnosis ROR - Labs Reviewed Laboratory Results Reviewed?: Yes Result Diagrams: 02/24/17 14:30 02/24/17 14:30 Laboratory: WBC 1.9 X10^3/uL (3.6-10.0) L* 02/24/17 14:30 RBC 1.59 X10^6/uL (3.5-5.4) L 02/24/17 14:30 Hgb 4.1 g/dL (12.0-16.0) L* 02/24/17 14:30 Hct 12.6 % (36.0-47.0) L* 02/24/17 14: MCV 79.4 fL (80.0-100.0) L 02/24/17 14:30 MCH 25.9 pg (27.0-34.0) L 02/24/17 14:30 MCHC 32.6 g/dL (33.0-35.0) L 02/24/17 14:30 RDW 22.0 % (11.6-16.5) H 02/24/17 14:30 Plt Count 21 X10^3/uL (150.0-450.0) L 02/24/17 14:30 Plt Count Comment Decreased (ADEQUATE) A 02/24/17 14: MPV 6.7 fL (7.4-11.0) L 02/24/17 14:30 Neut % 68.2 % (42.0-75.0) 02/24/17 14:30 Lymph % 28.8 % (21.0-51.0) 02/24/17 14:30 Radford % 1.4 % (0.0-13.0) 02/24/17 14:30 Eos % 1.3 % (0.9-2.9) 02/24/17 14:30 Baso % 0.3 % (0.2-1.0) 02/24/17 14:30 Neut # 1.3 x10^3/uL (2.2-4.8) L 02/24/17 14:30 Lymph # 0.5 X10^3/uL (1.3-2.9) L 02/24/17 14:30 Radford # 0 x10^3/uL (0.3-0.8) L 02/24/17 14:30 Eos # 0.0 x10^3/uL (0.0-0.2) 02/24/17 14:30 Baso # 0.0 X10^3/uL (0.0-0.1) 02/24/17 14:30 Absolute Nucleated RBC 0.8 /100WBC 02/24/17 14:30 Total Counted 25 02/24/17 14:30 Neutrophils % (Manual) 25 % (39-76) L 02/24/17 14:30 Band Neutrophils % 16 % (0-10) H 02/24/17 14:30 Lymphocytes % (Manual) 40 % (13-43) 02/24/17 14:30 Monocytes % (Manual) 3 % (4-9) L 02/24/17 14:30 Metamyelocytes % 12 02/24/17 14:30 Myelocytes % 4 02/24/17 14:30 Plt Morphology Comment Normal (NORMAL) 02/24/17 14:30 RBC Morphology Abnormal (NORMAL) A 02/24/17 14:30 Hypochromasia 2+ A 02/24/17 14:30 Poikilocytosis 1+ A 02/24/17 14:30 Anisocytosis 2+ A 02/24/17 14:30 Target Cells Present 02/24/17 14:30 Tear Drop Cells Present 02/24/17 14:30 Crenated Cell Present 02/24/17 14:30 Sample Site Rfem 02/24/17 14:12 ABG pH 7.360 (7.35-7.45) 02/24/17 14:12 ABG pCO2 31.0 mmHg (35.0-45.0) L 02/24/17 14:12 ABG pO2 55.0 mmHg (80.0-100.0) L 02/24/17 14:12 ABG HCO3 17.5 mmol/L (22-26) L* 02/24/17 14:12 ABG O2 Saturation 87.0 % (90-100) L 02/24/17 14:12 ABG Base Excess -6.9 mmol/L (-2.0-2.0) L 02/24/17 14:12 Larry Test No 02/24/17 14:12 A-a Gradient 619.0 mmHg 02/24/17 14:12 FiO2 100.000 02/24/17 14:12 Blood Gas Comments Cadence well 02/24/17 14:12 Sodium 140 mmol/L (136-145) 02/24/17 14:30 Corrected Sodium TNP 02/24/17 14:30 Potassium 3.6 mmol/L (3.5-5.1) 02/24/17 14:30 Chloride 102 mmol/L (98-107) 02/24/17 14:30 Carbon Dioxide 15.1 mmol/L (21-32) L 02/24/17 14:30 BUN 12 mg/dL (7-18) 02/24/17 14:30 Creatinine 2.93 mg/dL (0.55-1.02) H 02/24/17 14:30 Est GFR (MDRD) Af Amer 21 (>60) L 02/24/17 14:30 Est GFR (MDRD) Non-Af 17 (>60) L 02/24/17 14:30 Glucose 11 mg/dL (65-99) L* 02/24/17 14:30 POC Glucose (mg/dL) 51 mg/dL (65-99) L 02/24/17 17:30 Lactic Acid 14.0 mmol/L (0.4-2.0) H 02/24/17 14:30 Calcium 8.3 mg/dL (8.5-10.1) L 02/24/17 14:30 Corrected Calcium 10.8 mg/dL (8.5-10.1) H 02/24/17 14:30 Total Bilirubin 0.70 mg/dL (0.2-1.0) 02/24/17 14:30 AST 59 Units/L (15-37) H 02/24/17 14:30 ALT 7 Units/L (12-78) L 02/24/17 14:30 Alkaline Phosphatase 117 Units/L (46-116) H 02/24/17 14:30 Creatine Kinase 121 Units/L (26-192) 02/24/17 14:30 CK-MB (CK-2) 1.6 ng/mL (0-4.0) 02/24/17 14:30 CK/CKMB % Calc 1.3 % (<4) 02/24/17 14:30 Troponin I 0.05 ng/mL (0-1.5) 02/24/17 14:30 B-Natriuretic Peptide 1550 pg/mL (0-79) H* 02/24/17 14:30 Total Protein 5.6 g/dL (6.4-8.2) L 02/24/17 14:30 Albumin 0.9 g/dL (3.4-5.0) L 02/24/17 14:30 Globulin 4.7 g/dL (2.5-4.5) H 02/24/17 14:30 Albumin/Globulin Ratio 0.2 Ratio (1.1-2.1) L 02/24/17 14:30 Blood Type B POSITIVE 02/24/17 14:30 Antibody Screen Negative 02/24/17 14:30 Crossmatch See Detail 02/24/17 14:30 - XRAY XRAY Interpreted by: Radiologist XRAY Findings: REPORT NOTED - EKG Rhythm: ST (EKG NOTED) - Diagnosis Discharge Problem: Cardiopulmonary arrest, Hypoglycemia, End stage renal failure on dialysis Sepsis Qualifiers: Sepsis type: sepsis due to unspecified organism Qualified Code(s): A41.9 - Sepsis, unspecified organism Hypotension Qualifiers: Hypotension type: unspecified hypotension type Qualified Code(s): I95.9 - Hypotension, unspecified Anemia Qualifiers: Anemia type: other cause Other causes of anemia: other cause, not classified Qualified Code(s): D64.89 - Other specified anemias - Discharge Plan Condition: Stable - Follow ups/Referrals Follow ups/Referrals: NFD,None [Primary Care Provider] - 3 days - Instructions
[2017-02-24] MEDS ORDERED: VANCOMYCIN HCL 1 GM VIAL IV ONE (14:17)
[2017-02-24 14:23] LABS: ABG BASE EXCESS -6.9 mmol/L (-2.0-2.0)
[2017-02-24 14:24] LABS: ABG ALLEN TEST NO; ABG HCO3 17.5 mmol/L (22-26)
[2017-02-24 14:40] LABS: ALANINE AMINOTRANSFERASE 7 Units/L (12-78); ALBUMIN 0.9 g/dL (3.4-5.0); ALKALINE PHOSPHATASE 117 Units/L (46-116); ASPARTATE AMINO TRANSFERASE 59 Units/L (15-37); BLOOD UREA NITROGEN 12 mg/dL (7-18); CALCIUM 8.3 mg/dL (8.5-10.1); CHLORIDE 102 mmol/L (98-107); CKMB % 1.3 % (<4); COR CA(FOR HYPOALB) 10.8 mg/dL (8.5-10.1); CREATINE KINASE 121 Units/L (26-192); CREATINE KINASE MB 1.6 ng/mL (0-4.0); CREATININE 2.93 mg/dL (0.55-1.02); SODIUM 140 mmol/L (136-145); TOTAL PROTEIN 5.6 g/dL (6.4-8.2); TROPONIN I 0.05 ng/mL (0-1.5); eGFR BLACK RACES 21 (>60); eGFR NON BLACK RACES 17 (>60)
[2017-02-24 14:51] LABS: BASOPHILS % (AUTO) 0.3 % (0.2-1.0); EOSINOPHILS % (AUTO) 1.3 % (0.9-2.9); LYMPHOCYTES # (AUTO) 0.5 X10^3/uL (1.3-2.9); LYMPHOCYTES % (AUTO) 28.8 % (21.0-51.0); MEAN CORPUSCULAR HEMOGLOBIN 25.9 pg (27.0-34.0); MEAN CORPUSCULAR HGB CONC 32.6 g/dL (33.0-35.0); MEAN CORPUSCULAR VOLUME 79.4 fL (80.0-100.0); MEAN PLATELET VOLUME 6.7 fL (7.4-11.0); MONOCYTES # (AUTO) 0 x10^3/uL (0.3-0.8); MONOCYTES % (AUTO) 1.4 % (0.0-13.0); NEUTROPHILS # (AUTO) 1.3 x10^3/uL (2.2-4.8); NEUTROPHILS % (AUTO) 68.2 % (42.0-75.0); PLATELET COUNT 21 X10^3/uL (150.0-450.0); RED BLOOD COUNT 1.59 X10^6/uL (3.5-5.4)
[2017-02-24 14:57] LABS: HEMOGLOBIN 4.1 g/dL (12.0-16.0); WHITE BLOOD COUNT 1.9 X10^3/uL (3.6-10.0)
[2017-02-24 14:58] LABS: CARBON DIOXIDE 15.1 mmol/L (21-32); HEMATOCRIT 12.6 % (36.0-47.0)
[2017-02-24] MEDS ORDERED: D50W ABBOJECT SYR ONE ×5 (14:58→22:02)
[2017-02-24 15:00] LABS: BAND NEUTROPHILS % 16 % (0-10); METAMYELOCYTES % 12; MYELOCYTES % 4
[2017-02-24 15:01] LABS: ANISOCYTOSIS 2+; CRENATED RBC PRESENT; HYPOCHROMASIA 2+; PLATELET MORPHOLOGY COMMENT NORMAL (NORMAL); POIKILOCYTOSIS 1+; TARGET CELLS PRESENT; TEAR DROP CELLS PRESENT
[2017-02-24] MEDS ORDERED: D50W ABBOJECT SYR IV ONE ×5 (15:04→22:05)
[2017-02-24 15:07] VITALS: BMI 28.3
--- NOTE | 2017-02-24 15:21 | RAD ---
HISTORY: Fall code, tube placement. Past history of hypertension, CVA and asthma. Study: Single-view chest, done 4 Comparison: 02/14/2017. Findings: Endotracheal tube is in place with the tip 3.01 cm above the luis. This is in satisfactory position . The large-bore dual-lumen dialysis type catheter is again seen inserted via a left internal jugular approach with the tip cavoatrial junction. There is vascular endo stent present involving left subcl geovani and axillary regions. The trachea is midline. The heart size is normal. There is aortic uncoili ng. Lungs and pleural spaces are clear. No pneumothorax is seen. Severe degenerative changes are pres ent involving both glenohumeral joints. IMPRESSION: Satisfactory position of endotracheal tube with the tip 3 cm cephalad to the luis. No acute abnormality seen . Multiple chronic changes noted. Reported By:
[2017-02-24 15:31] LABS: B-TYPE NATRIURETIC PEPTIDE 1550 pg/mL (0-79)
[2017-02-24] MEDS ORDERED: D5 NS 1000 ML 1,000 ML IV ONE (17:33)
[2017-02-24] MEDS ORDERED: VANCOMYCIN 1 GM PREMIX (ADDVANTAGE) 250 ML IV ONE (17:48)
[2017-02-24] MEDS ORDERED: D5 NS 1000 ML 1,000 ML IV SCH (18:00)
[2017-02-24] MEDS ORDERED: NS 500 ML IV 500 ML IV ONE (18:30)
[2017-02-24] MEDS ORDERED: DUONEB 0.5 MG/3 MG ONE (20:04)
[2017-02-25 00:14] VITALS: BP 52/29
== END 2017-02-25 03:07 | disposition expired ==
LOC: ER 13:17
PROC: 0T9B70Z Drainage of Bladder with Drainage Device, Via Natural or Artificial Opening (ICD-10-PCS; principal; 2017-02-24)
PROC: 5A12012 Performance of Cardiac Output, Single, Manual (ICD-10-PCS; principal; 2017-02-24)
PROC: 30233N1 Transfusion of Nonautologous Red Blood Cells into Peripheral Vein, Percutaneous Approach (ICD-10-PCS; principal; 2017-02-24)
PROC: 0BH17EZ Insertion of Endotracheal Airway into Trachea, Via Natural or Artificial Opening (ICD-10-PCS; principal; 2017-02-24)
DX: I46.9 Cardiac arrest, cause unspecified (principal); N18.6 End stage renal disease; E16.2 Hypoglycemia, unspecified; A41.9 Sepsis, unspecified organism; I95.9 Hypotension, unspecified; D64.89 Other specified anemias; B96.81 Helicobacter pylori [H. pylori] as the cause of diseases classified elsewhere
CPT/HCPCS: 31500; 36415; 36430; 36600; 51702; 71010; 80053; 82550; 82553; 82803; 82947; 83605; 83880; 84484; 85025; 86850; 86900; 86901; 86922; 87040; 87077; 87186; 92950; 93005; 93010; 93041; 96365; 96367; 96374; 96375; 99285; A4222; A4618; P9016; J0170; J3370; J3490; J7620